=== PATIENT | female | born 1965 | race Caucasian/White ===

== ENCOUNTER 2024-05-31 12:00 | Inpatient (IN) | payer OTHER, MEDICAID ==
[2024-06-02 12:40] VITALS: BMI 41.5
[2024-06-21] MEDS ORDERED: Famotidine/PF 20 mg/2ml Vial ONE (06:30)
[2024-06-21] MEDS ORDERED: Bupivacaine 0.25% HCL 30 ML VIAL ONE (06:37)
[2024-06-21] MEDS ORDERED: EPINEPHrine 1 MG/ML VIAL ONE (06:37)
[2024-06-21] MEDS ORDERED: Scopolamine 1 mg/72 hour Patch ONE (06:46)
[2024-06-21] MEDS ORDERED: Enoxaparin 40 MG (0.4 mL) SYRINGE ONE (06:46)
[2024-06-21] MEDS ORDERED: cefOXitin 2 GM VIAL ONE (07:21)
[2024-06-21] MEDS ORDERED: PROPOFOL 20 ML ONE (07:29)
[2024-06-21] MEDS ORDERED: Midazolam HCl 2 mg/2 ml Vial ONE (07:30)
[2024-06-21] MEDS ORDERED: fentaNYL 50 mcg/mL 1 mL Vial ONE (07:30)
[2024-06-21] MEDS ORDERED: PHENYLEPHRINE-NS 100 MCG/ML 10 ML SYRINGE ONE (07:31)
[2024-06-21] MEDS ORDERED: Lidocaine 2% PF 5 ML VIAL ONE (07:31)
[2024-06-21] MEDS ORDERED: Rocuronium Bromide 10 MG/ML (10ML VIAL) ONE (07:32)
[2024-06-21] MEDS ORDERED: NOREPINEPHRINE 8 MG/250 ML-D5W 0 ML ONE (07:33)
[2024-06-21] MEDS ORDERED: Promethazine HCl 25 MG/ML VIAL IM PRN ×2 (07:41→09:16)
[2024-06-21] MEDS ORDERED: Glucagon 1 MG/ML KIT IM PRN (07:41)
[2024-06-21] MEDS ORDERED: Dextrose 50% Abboject 50 ML SYRINGE SLOW IVP PRN (07:41)
[2024-06-21] MEDS ORDERED: Dextrose 5% in Water 1,000 ML IV PRN (07:41)
[2024-06-21] MEDS ORDERED: hydrALAZINE 20 MG/ML VIAL SLOW IVP PRN (07:41)
[2024-06-21] MEDS ORDERED: Insulin Regular, Human 100 UNIT/ML 10 ML VIAL SC PRN (07:41)
[2024-06-21] MEDS ORDERED: traMADol HCl 50 MG TAB PO PRN (07:41)
[2024-06-21] MEDS ORDERED: oxyCODONE 5 MG TAB PO PRN (07:41)
[2024-06-21] MEDS ORDERED: diphenhydrAMINE 50 MG/ML VIAL IVP PRN (07:41)
[2024-06-21] MEDS ORDERED: Ipratropium/Albuterol 3 ML NEB NEB PRN (07:41)
[2024-06-21] MEDS ORDERED: ePHEDrine Sulfate 50 MG/10 ML VIAL ONE (07:48)
[2024-06-21] MEDS ORDERED: Lorazepam 1 MG TAB PO PRN (07:48)
[2024-06-21] MEDS ORDERED: SUGAMMADEX SODIUM 200 MG/2 ML VIAL ONE (08:49)
[2024-06-21] MEDS ORDERED: Ondansetron PF 4 MG/2 ML Vial ONE (08:49)
[2024-06-21] MEDS ORDERED: Ketorolac Tromethamine 30 MG (1 mL) VIAL ONE (08:49)
[2024-06-21] MEDS ORDERED: Dexamethasone 4 mg/ml Vial ONE (08:49)
[2024-06-21] MEDS ORDERED: Ondansetron HCl/PF 4 MG/2 ML Vial IVP PRN (09:16)
[2024-06-21] MEDS ORDERED: Fentanyl 250 MCG/5 ML VIAL ONE (09:17)
[2024-06-21] MEDS: Ondansetron PF 4 MG/2 ML Vial IVP PRN (10:52)
[2024-06-21] MEDS: D5 1/2 NS w/20 mEq KCL 1,000 ML IV SCH (10:53)
[2024-06-21] MEDS: Enoxaparin 40 MG (0.4 mL) SYRINGE SC SCH (10:54)
[2024-06-21] MEDS: Ketorolac Tromethamine 30 MG (1 mL) VIAL IVP SCH (13:12)
[2024-06-21] MEDS: Acetaminophen 650 MG/20.3 ML UDCUP PO SCH (13:14)
[2024-06-21] MEDS: Cyclobenzaprine 10 MG TAB PO SCH (15:00)
[2024-06-21] MEDS: Carvedilol 25 MG TAB PO SCH (15:00)
[2024-06-21] MEDS: Escitalopram Oxalate 10 mg Tablet PO SCH (15:00)
[2024-06-21] MEDS: Levothyroxine Sodium 50 MCG TAB PO SCH (15:00)
[2024-06-21] MEDS: Pantoprazole 40 MG VIAL IVP SCH (15:00)
[2024-06-22 13:45] VITALS: TEMP 97.9
[2024-06-22 16:24] VITALS: BP 122/56
== END 2024-06-22 17:57 | disposition home or self-care (01) | DRG 621 ==
LOC: SURG A 06-21 06:09 → SURG B 06-21 10:26 → EDSTATUS 06-21 12:00
PROVIDERS: ADMIT Surgery; ATTEND Surgery
PROC: 0DB64Z3 Excision of Stomach, Percutaneous Endoscopic Approach, Vertical (ICD-10-PCS; principal; 2024-06-21)
PROC: 8E0W4CZ Robotic Assisted Procedure of Trunk Region, Percutaneous Endoscopic Approach (ICD-10-PCS; 2024-06-21)
DX: E66.01 Morbid (severe) obesity due to excess calories (principal); E11.9 Type 2 diabetes mellitus without complications; E78.00 Pure hypercholesterolemia, unspecified; I50.9 Heart failure, unspecified; E63.9 Nutritional deficiency, unspecified; E88.810 Metabolic syndrome; K21.9 Gastro-esophageal reflux disease without esophagitis; E78.5 Hyperlipidemia, unspecified; I11.0 Hypertensive heart disease with heart failure; Z79.899 Other long term (current) drug therapy
CPT/HCPCS: 36416; 88307; 88342; 94760; J0171; J0665; J0694; J1100; J1650; J1885; J2250; J2405; J2470; J2704; J3010; J3480; J3490; S2900

== ENCOUNTER 2024-06-02 12:09 | Outpatient (CLI) | payer OTHER, MEDICAID ==
[2024-06-02 14:18] LABS: #Basophils 0.05 10x3/uL (0.0-0.2); %Basophils 0.8 % (0.0-1.0); %Eosinophils 2.3 % (0.0-10.0); %Lymphocytes 33.3 % (21.0-51.0); %Monocytes 7.7 % (0.0-10.0); %Neutrophils 55.7 % (42.0-75.0); Hematocrit 44.5 % (36.0-47.0); Hemoglobin 14.6 g/dL (12.0-16.0); Mean Corpuscular HGB CONC 32.8 g/dL (32.0-36.0); Mean Corpuscular Hemoglobin 31.5 pg (27.0-31.0); Mean Corpuscular Volume 96.1 fL (78.0-98.0); Mean Platelet Volume 12.2 fL (7.4-10.4); Platelet Count 192 10x3/uL (130-400); RBC Distribution Width 13.9 % (11.5-14.5); Red Blood Cell (RBC) Count 4.63 mill/uL (4.20-5.40)
[2024-06-02 14:41] LABS: Anion Gap 15 mmol/L (10-20); BUN (Urea Nitrogen) 18 mg/dL (9.8-20.1); Calc. Creatinine Clearance 0 mL/min (70-130); Calcium 9.6 mg/dL (7.8-10.44); Carbon Dioxide 23 mmol/L (22-29); Chloride 107 mmol/L (98-107); Estimated GFR 81; Glucose 130 mg/dL (70-105); Potassium 4.2 mmol/L (3.5-5.1); Sodium 141 mmol/L (136-145)
== END 2024-06-02 12:10 | disposition home or self-care (01) ==
LOC: LABBT 12:09
PROVIDERS: ATTEND Surgery
DX: Z01.818 Encounter for other preprocedural examination (principal); K21.9 Gastro-esophageal reflux disease without esophagitis; E11.9 Type 2 diabetes mellitus without complications
CPT/HCPCS: 80048; 85025; 93005; 93010